=== PATIENT | female | born 1950 | race Caucasian/White ===

== ENCOUNTER 2017-01-26 08:48 | Emergency (ER) | payer MEDICARE, BC ==
[~2017-01-26 08:48] MED LIST: MELO15TA2 PO; METO25 PO; SYNT112T PO
[2017-01-26 08:50] VITALS: BP 134/89; PULSE 84; RESP 15; TEMP 98.4; O2SAT 99
--- NOTE | 2017-01-26 09:14 | PD ---
HPI Chief Complaint: Back/ Neck Pain or Injury Time Seen by Provider: 09:05 Travel History International Travel<30 days: No Contact w/Intl Traveler<30days: No Traveled to known affect area: No History of Present Illness HPI 66-year-old female with history of chronic minimal lower back pain here for evaluation of worsening pain. Patient reports pain for several years. Her primary care physician has performed several adjustments. Since a road trip in October her back pain has been worse. She has been taking Tylenol and cyclobenzaprine without relief of symptoms. No recent trauma. No urinary or bowel incontinence or retention. No fevers. No urinary symptoms. No history of cancer. No paresthesias or motor deficits. Pain is moderate, sharp, worse with movement and palpation. PFSH Past Medical History Migraines: Yes Thyroid Disease: Yes (HYPOTHYROID) Menopausal: Yes Past Surgical History Gynecologic Surgery: Yes (OVARY REMOVED) Social History Alcohol Use: Yes (2 GLASSES WINE/DAY) Tobacco Use: No Substance Use: No Allergies-Medications (Allergen,Severity, Reaction): Coded Allergies: ibuprofen (Unverified Allergy, Severe, HX PEPTIC ULCER, 01/26/17) Reported Meds & Prescriptions Reported Meds & Active Scripts Active Reported Mobic (Meloxicam) 15 Mg Tab 15 Mg PO DAILY Lopressor (Metoprolol Tartrate) 25 Mg Tab 25 Mg PO Synthroid (Levothyroxine Sodium) 112 Mcg Tab 112 Mcg PO Review of Systems Except as stated in HPI: all other systems reviewed are Neg Physical Exam Narrative GENERAL: Well-developed, well-nourished, sitting comfortably on stretcher, no apparent distress. SKIN: Focused skin assessment warm/dry. No rash. HEAD: Atraumatic. Normocephalic. EYES: Pupils equal and round. No scleral icterus. No injection or drainage. ENT: Mucous membranes pink and moist. NECK: Trachea midline. No JVD. No midline cervical spine step-off or tenderness. CARDIOVASCULAR: Regular rate and rhythm. MUSCULOSKELETAL: No obvious deformities. No clubbing. No cyanosis. No edema. Normal muscle strength in bilateral upper and lower extremities. Normal range of motion in all extremities. Moderate midline lower thoracic spine and lumbar spine tenderness without step-off. NEUROLOGICAL: Awake and alert. No obvious cranial nerve deficits. Motor grossly within normal limits. Normal speech. Brisk patellar tendon reflex on the right, 1+ reflex on the left. Great toe extension present bilaterally. PSYCHIATRIC: Appropriate mood and affect; insight and judgment normal. Data Data Last Documented VS Vital Signs Date Time Temp Pulse Resp B/P (MAP) Pulse Ox O2 Delivery O2 Flow Rate FiO2 01/26/17 08:58 16 01/26/17 08:50 98.4 84 134/89 (104) 99 Orders Orders Spine, Thoracic-Ap/Lat/Sw(3vw) (01/26/17 ) Spine, Lumbar Comp W/Obliq (01/26/17 ) Oxycodone-Acetamin 5-325 Mg (Percocet (01/26/17 09:15) MDM Medical Decision Making Medical Screen Exam Complete: Yes Emergency Medical Condition: Yes Differential Diagnosis Acute on chronic lower back pain, osteoarthritis, osteomyelitis/discitis unlikely, cord compression unlikely, dissection unlikely Narrative Course Vital signs show heart rate 84, blood pressure 134/89, pulse ox 99% on room air , oral temp of 98.4F. X-ray thoracic spine: CONCLUSION: No evidence of fracture. Degenerative disc changes seen at the level of T10/T11. X-ray lumbar spine: CONCLUSION: Mild osteopenia with degenerative changes seen at L4/L5 and moderate facet degenerative changes within the lower lumbar spine from L4-S1. Patient was made aware of all findings. She is resting comfortably. She does not have any red flags for back pain requiring further imaging at this time. This is a chronic issue. Plan is to discharge her home with pain medications and have her follow-up with her primary care physician this week. She was informed on when to return to the emergency department. She verbalizes understanding and agreement with plan. Diagnosis Primary Impression: Back pain Qualified Codes: M54.9 - Dorsalgia, unspecified; G89.29 - Other chronic pain Referrals: Primary Care Physician 3 days Additional Instructions: Follow-up with your primary care physician this week. Return to the emergency department for worsening symptoms or any other concerns. Scripts Oxycodone-Acetaminophen (Percocet) 5-325 mg Tab 1 TAB PO Q6H Y for PAIN, #15 TAB 0 Refills Prov: Will David MD 01/26/17 Disposition: 01 DISCHARGE HOME Condition: Stable Will David MD Jan 26, 2017 09:14
[2017-01-26] MEDS ORDERED: oxyCODONE/ACETAMINOPHEN 5 MG/325 MG TAB PO ONE (09:15)
--- NOTE | 2017-01-26 10:27 | RADRPT ---
EXAM DATE/TIME: 01/26/2017 10:04 [facility] COMPARISON: No previous studies available for comparison. INDICATIONS : Back pain after long car ride. MEDICAL HISTORY : Chronic back pain. SURGICAL HISTORY : None. ENCOUNTER: Initial ACUITY: 2 weeks PAIN SCORE: 4/10 LOCATION: Thoracic spine. FINDINGS: There is normal alignment of the thoracic vertebral bodies. Vertebral body height is maintained. No evidence of fracture or subluxation. Endplate sclerosis overlying the T10/T11 disc space. The bones appear mildly osteopenic. Pedicles are intact at all levels. The paravertebral reflections are not thickened. CONCLUSION: No evidence of fracture. Degenerative disc changes seen at the level of T10/T11. Tahira Driscoll MD on January 26, 2017 at 10:25 Board Certified Radiologist. This report was verified electronically.
--- NOTE | 2017-01-26 10:29 | RADRPT ---
EXAM DATE/TIME: 01/26/2017 10:05 [facility] COMPARISON: No previous studies available for comparison. INDICATIONS : Back pain after long car ride. MEDICAL HISTORY : Chronic back pain. SURGICAL HISTORY : None. ENCOUNTER: Initial ACUITY: 1 day PAIN SCORE: 6/10 LOCATION: Lumbar spine. FINDINGS: There are five non-rib bearing vertebral bodies. The vertebral bodies are in normal alignment withou t evidence of subluxation or scoliosis. There is disc space narrowing seen at the level of L4/L5 and moderate facet degenerative changes seen from L4-S1. The posterior elements are intact without eviden ce of spondylolysis. The pedicles are intact. No fracture is identified. CONCLUSION: Mild osteopenia with degenerative changes seen at L4/L5 and moderate facet degenerative changes withi n the lower lumbar spine from L4-S1. Tahira Driscoll MD on January 26, 2017 at 10:26 Board Certified Radiologist. This report was verified electronically.
[2017-01-26] MEDS ORDERED: PERC5TAB12 PO (10:38)
[2017-01-26 10:39] VITALS: RESP 16
== END 2017-01-26 10:41 | disposition home or self-care (01) ==
LOC: NEPD 08:48
DX: M54.5 Low back pain (principal); G89.29 Other chronic pain
CPT/HCPCS: 72072; 72110; 99283

== ENCOUNTER → 2017-02-26 | Outpatient (CLI) | payer MEDICARE, BC ==
[~2017-02-26] MED LIST changes: +PERC5TAB12 PO
[2017-02-26 13:18] LABS: BACTERIA, URINE OCC /hpf; BLOOD, URINE MOD (NEG); COMMENT (UR) CULTURE INDICATED; CULTURE IF INDICATED CULTURE INDICATED; GLUCOSE,URINE NEG (NEG); KETONE, URINE 10 mg/dL (NEG); MUCUS URINE FEW /lpf (OCC); NITRITE,URINE NEG (NEG); PH, URINE 6.5 (5.0-8.5); SQUAMOUS EPITHELIAL CELL URINE <1 /hpf (0-5); URINE COLOR DARK-YELLOW (YELLW/STRAW)
[2017-02-26 13:28] LABS: AUTOMATED NEUTROPHIL # 7.1 TH/MM3 (1.8-7.7); BASOPHIL # 0.1 TH/MM3 (0-0.2); BASOPHIL % 0.6 % (0.0-2.0); EOSINOPHIL # 0.1 TH/MM3 (0-0.4); EOSINOPHIL % 1.5 % (0.0-4.0); HEMATOCRIT 37.9 % (35.0-46.0); HEMO FLAGS DIFF FINAL; LYMPH % 11.4 % (9.0-44.0); MEAN CELL VOLUME 94.5 FL (80.0-100.0); MEAN CORPUSCULAR HEMOGLOBIN 32.4 PG (27.0-34.0); MEAN CORPUSCULAR HGB CONC 34.3 % (32.0-36.0); MONO % 7.8 % (0.0-8.0); NEUT % 78.7 % (16.0-70.0); PLATELET COUNT 355 TH/MM3 (150-450); RED BLOOD COUNT 4.01 MIL/MM3 (4.00-5.30); RED CELL DISTRIBUTION WIDTH 14.9 % (11.6-17.2); RETIC % 1.5 % (0.4-3.0); REVIEW FLAG FINAL
[2017-02-26 13:42] LABS: ALT (GPT) 519 U/L (10-53); ANION GAP 9 MEQ/L (5-15); AST (GOT) 277 U/L (15-37); BICARBONATE 24.8 MEQ/L (21.0-32.0); BLOOD UREA NITROGEN 9 MG/DL (7-18); CHLORIDE 95 MEQ/L (98-107); GLOMERULAR FILTRATION RATE 66 ML/MIN (>89); GLUCOSE,FASTING 176 MG/DL (74-99); POTASSIUM 3.7 MEQ/L (3.5-5.1); SODIUM (NA) 129 MEQ/L (136-145)
[2017-02-26 13:45] LABS: ALKALINE PHOSPHATASE 439 U/L (45-117); INDIRECT BILIRUBIN 1.8 MG/DL (0.0-0.8); LDH SERUM 281 U/L (84-246); TOTAL BILIRUBIN ADULT 9.2 MG/DL (0.2-1.0)
== END ==
LOC: CLAB 12:22
PROVIDERS: ATTEND Student in an Organized Health Care Education/Training Program
DX: R17 Unspecified jaundice (principal); R82.90 Unspecified abnormal findings in urine
CPT/HCPCS: 36415; 80053; 80074; 81001; 82247; 82248; 83010; 83520; 83615; 85025; 85044; 85060; 86140; 86880; 87086